=== PATIENT | female | born 1930 | race Caucasian/White ===

== ENCOUNTER 2016-07-03 22:31 | Emergency (ER) | payer MEDICARE, BC ==
[2016-07-03] MEDS ORDERED: NEOSYNEPHRINE 0.5% NASAL SPRAY/DROPS NS ONE (23:19)
--- NOTE | 2016-07-03 23:24 | ERPHSYRPT ---
- History of Present Illness Time Seen by Provider: 07/03/16 23:13 Source: patient Exam Limitations: no limitations Patient Subjective Stated Complaint: Pt sts nosebleed from left nare since 2129. Attempted to stop bleeding with pressure and ice at home without relief. Triage Nursing Assessment: Pt alert, oriented, answers all questions appropriately. Skin p/w/d, resps non-labored. Scant oozing blood noted to left nare. Nasal clamp placed on pts nose upon arrival. Physician History: This is a 85-year-old white female with history of arrhythmia hyperlipidemia high blood pressure arthritis who is on Coumadin. She arrives with complaint of bleeding from her left naris symptoms since 9:30 PM family states he applied pressure is unable to get it to stop. Patient has not had any other complaints. Past medical history includes arrhythmia, hyperlipidemia, high blood pressure, arthritis. Past surgical history includes appendectomy, hysterectomy, brain surgery from a bleed after a fall. Timing/Duration: abrupt onset, this evening (9:30 this evening) Severity: mild Prearrival Treatment: squeezing nostrils Modifying Factors: Improves With: activity Associated Symptoms: other (bleeding from left naris), No ear pain (R), No ear pain (L), No cough, No fever, No chills, No change in hearing, No dizziness, No drooling, No ear drainage, No facial pain/swelling, No headache, No hearing loss , No jaw pain, No malaise, No motion sickness, No nasal congestion/drainage, No epistaxis, No nasal foreign body, No neck pain, No poor fluid intake, No poor solids intake, No ringing of ears, No swollen glands, No sinus infection, No sore throat, No tooth pain, No difficulty swallowing, No voice change Allergies/Adverse Reactions: No Known Drug Allergies Allergy (Verified 07/03/16 22:34) Home Medications: Amlodipine Besylate [Norvasc] 5 mg PO DAILY 03/14/13 [History] Digoxin [Lanoxin] 0.5 tab PO DAILY 03/14/13 [History] Metoprolol Tartrate 50 mg [Lopressor 50 MG] 50 mg PO BID 03/14/13 [History ] Simvastatin [Zocor] 20 mg PO DAILY 03/14/13 [History] Warfarin Sodium [Coumadin] 3 mg PO DAILY 03/14/13 [History] Oxybutynin Chloride [Oxybutynin Chloride ER] 5 mg PO BID 11/22/15 [History] Hx Tetanus, Diphtheria Vaccination/Date Given: No Hx Influenza Vaccination/Date Given: Yes (11/2013) Hx Pneumococcal Vaccination/Date Given: Yes (11/2007) Immunizations Up to Date: Yes - Review of Systems Constitutional: No Fever, No Chills Eyes: No Symptoms Ears, Nose, & Throat: Epistaxis, No Ear Pain, No Ear Discharge, No Hearing Changes, No Tinnitus, No Nose Pain, No Nose Congestion, No Nose Discharge, No Sinus Drainage, No Mouth Pain, No Mouth Swelling, No Loose Teeth, No Throat Pain , No Throat Swelling, No Hoarse, No Painful Swallowing, No Snoring, No Stridor Respiratory: No Cough, No Dyspnea Cardiac: No Chest Pain, No Edema, No Syncope Abdominal/Gastrointestinal: No Abdominal Pain, No Nausea, No Vomiting, No Diarrhea Genitourinary Symptoms: No Dysuria Musculoskeletal: No Back Pain, No Neck Pain Skin: No Rash Neurological: No Dizziness, No Focal Weakness, No Sensory Changes Psychological: No Symptoms Endocrine: No Symptoms All Other Systems: Reviewed and Negative - Past Medical History Pertinent Past Medical History: Yes Neurological History: Other ENT History: No Pertinent History Cardiac History: Arrhythmia, High Cholesterol, Hypertension Respiratory History: No Pertinent History Endocrine Medical History: No Pertinent History Musculoskeletal History: Arthritis GI Medical History: No Pertinent History History: No Pertinent History Psycho-Social History: No Pertinent History Female Reproductive Disorders: No Pertinent History Other Medical History: hx:fall with brain surgery- 50 years - Past Surgical History Past Surgical History: Yes Neuro Surgical History: Other Cardiac: No Pertinent History Respiratory: No Pertinent History Gastrointestinal: Appendectomy Genitourinary: No Pertinent History Musculoskeletal: No Pertinent History Female Surgical History: Hysterectomy Other Surgical History: Brain surgery for a bleed from a fall - Social History Smoking Status: Never smoker How long have you smoked: social smo Exposure to second hand smoke: No Drug Use: none Patient Lives Alone: Yes - Nursing Vital Signs Nursing Vital Signs: Initial Vital Signs Temperature 97.6 F Temperature Source Oral Pulse Rate 66 Respiratory Rate 16 Blood Pressure [Left Arm] 133/79 Pain Intensity 0 - Physical Exam General Appearance: no apparent distress, alert Eye Exam: bilateral eye: normal inspection, PERRL, EOMI Ear Exam: bilateral ear: auricle normal, canal normal, TM normal Nasal Exam: active bleeding (bleeding left naris mild amount decreased after nurses applied a nasal clamp) Throat Exam: pharynx normal, moist mucus membranes, No tonsillar exudate Neck Exam: supple Cardiovascular/Respiratory Exam: normal breath sounds, regular rate/rhythm Abdominal Exam: non-tender, soft Neurologic Exam: alert, oriented x 3, sensation nml, No motor deficits Skin Exam: normal color SpO2 Interpretation: normal (96%) SpO2: 96 Oxygen Delivery: Room Air - Course Nursing assessment & vital signs reviewed: Yes Ordered Tests: Active Orders 24 hr Category Date Time Status CBC W DIFF Stat Lab 07/03/16 23:45 Completed PROTIME WITH INR Stat Lab 07/03/16 23:45 Completed PTT Stat Lab 07/03/16 23:45 Completed Medication Summary Discontinued Medications Generic Name Dose Route Start Last Admin Trade Name Duranq PRN Reason Stop Dose Admin Phenylephrine HCl 15 ml 07/03/16 23:19 07/03/16 23:43 Neosynephrine 0.5% Nasal [place]/Drops NS 07/03/16 23:20 15 ml STAT ONE Administration Phenylephrine HCl Confirm 07/03/16 23:43 Neosynephrine 0.5% Nasal [place]/Drops Administered 07/03/16 23:44 Dose 15 ml .ROUTE .[employer] ONE Lab/Rad Data: Laboratory Result Diagrams 07/03/16 23:45 Laboratory Results 07/03/16 07/03/16 Range/Units 23:45 23:45 WBC 6.3 (4.0-10.5) K/mm3 RBC 3.67 L (4.1-5.4) M/mm3 Hgb 12.3 (12.0-16.0) gm/dl Hct 36.6 (35-47) % MCV 99.7 (78-100) fl MCH 33.5 H (26-32) pg MCHC 33.6 (32-36) g/dl RDW 13.5 (11.5-14.0) % Plt Count 201 (150-450) K/mm3 MPV 9.4 (6-9.5) fl Gran % 54.1 (36.0-66.0) % Lymphocytes % 29.0 (24.0-44.0) % Monocytes % 12.6 H (0.0-12.0) % Eosinophils % 4.0 (0.00-5.0) % Basophils % 0.3 (0.0-0.4) % Basophils # 0.02 (0-0.4) INR 2.67 (0.8-3.0) APTT 41.2 H (25.3-37.0) SECONDS - Progress Progress: improved Progress Note: 07/04/16 00:13 85-year-old white female with complaint of bleeding from left naris. Symptoms since this evening. Patient with minimal bleeding after nose clip is placed on patient. Patient was asked to blow her nose. Patient was given Jeffry-Synephrine in the left naris. No further bleeding. Patient's blood pressure was elevated on arrival this resolved spontaneously. Patient's INR is within therapeutic level. Will discharge patient with Jeffry-Synephrine 2 sprays in left nostril 4 times a day as needed for 2-3 days. Patient to follow-up with her family doctor. - Departure Time of Disposition: 00:15 Departure Disposition: Home Clinical Impression: Epistaxis Condition: Fair Critical Care Time: No Instructions: Nosebleed Additional Instructions: Return home. Jeffry-Synephrine 0.5% 2 sprays left naris 4 times a day as needed for 2-3 days. Follow-up with your family doctor call tomorrow if symptoms are recurrent. Return for acute distress or for severe symptoms.
[2016-07-03] MEDS ORDERED: NEOSYNEPHRINE 0.5% NASAL SPRAY/DROPS ONE (23:43)
[2016-07-03 23:48] LABS: BASOPHIL % 0.3 % (0.0-0.4); Granulocytes % 54.1 % (36.0-66.0); Mean Cell Volume 99.7 fl (78-100); Mean Corpuscular Hemoglobin 33.5 pg (26-32); Mean Platelet Volume 9.4 fl (6-9.5); Monocytes % 12.6 % (0.0-12.0); Platelet Count 201 K/mm3 (150-450); Red Blood Count 3.67 M/mm3 (4.1-5.4); Red Cell Distribution Width 13.5 % (11.5-14.0); White Blood Count 6.3 K/mm3 (4.0-10.5)
[2016-07-04 00:04] LABS: INR 2.67 (0.8-3.0); PROTIME 29.1 SECONDS (9.95-12.35)
[2016-07-04 00:07] LABS: PTT 41.2 SECONDS (25.3-37.0)
[2016-07-04 00:13] VITALS: BP 138/84; PULSE 60
[2016-07-04 00:16] VITALS: O2SAT 96
== END 2016-07-04 00:27 | disposition home or self-care (01) ==
LOC: ED 22:31
DX: R04.0 Epistaxis (principal); E78.5 Hyperlipidemia, unspecified; I10 Essential (primary) hypertension; Z79.01 Long term (current) use of anticoagulants; Z79.899 Other long term (current) drug therapy
CPT/HCPCS: 36415; 85025; 85610; 85730; 99283; A9270-GY

== ENCOUNTER 2017-02-02 15:48 | Emergency (ER) | payer MEDICARE, BC ==
[2017-02-02] MEDS ORDERED: MORPHINE SULFATE 4 MG INJ IV ONE ×2 (16:21→18:23)
[2017-02-02] MEDS ORDERED: Zofran 4 MG/2 ML VIAL IV ONE (16:21)
[2017-02-02] MEDS ORDERED: MORPHINE SULFATE 4 MG INJ ONE ×2 (16:22→18:24)
--- NOTE | 2017-02-02 16:24 | ERPHSYRPT ---
- History of Present Illness Time Seen by Provider: 02/02/17 16:15 Source: patient, family Exam Limitations: no limitations Patient Subjective Stated Complaint: TRIPPED AND FELL IN ON RUG WALKING INTO [facility] Triage Nursing Assessment: PT ALERT AND ORIENTED X3 , SOME SHORTENING NOTED ON LEFT LEG , TENDERNESS AND PAIN IN LEFT GROIN AREA, LEFT KNEE PAIN AND A SCRAPE ON LEFT KNEE Physician History: 86 y/o female currently on coumadin brought in by ambulance after tripping and falling landing on her left lower extremity. Pt states that she landed on her left knee and left hip. Of note, the son states that her head slid on the floor. Pt arrives in excruciating pain especially with minimal movement. Pt describes the pain as sharp, constant, 7/10 and pt has not taken any pain meds. Pt denies any headache, neck pain, back pain, dizziness or chest pain. Timing/Duration: today Occured at: street Context: fall Quality: sharpness Hip Pain Location: hip (L) Severity of Pain-Max: moderate Severity of Pain-Current: moderate Modifying Factors: Improves With: movement Allergies/Adverse Reactions: No Known Drug Allergies Allergy (Verified 07/03/16 22:34) Home Medications: Amlodipine Besylate [Norvasc] 5 mg PO DAILY 03/14/13 [History] Digoxin [Lanoxin] 0.5 tab PO DAILY 03/14/13 [History] Metoprolol Tartrate 50 mg [Lopressor 50 MG] 50 mg PO BID 03/14/13 [History ] Simvastatin [Zocor] 20 mg PO DAILY 03/14/13 [History] Warfarin Sodium [Coumadin] 3 mg PO DAILY 03/14/13 [History] Oxybutynin Chloride [Oxybutynin Chloride ER] 5 mg PO BID 11/22/15 [History] Hx Tetanus, Diphtheria Vaccination/Date Given: Yes Hx Influenza Vaccination/Date Given: No Hx Pneumococcal Vaccination/Date Given: No Immunizations Up to Date: Yes - Review of Systems Constitutional: No Fever, No Chills Eyes: No Symptoms Ears, Nose, & Throat: No Symptoms Respiratory: No Cough, No Dyspnea Cardiac: No Chest Pain, No Edema, No Syncope Abdominal/Gastrointestinal: No Abdominal Pain, No Nausea, No Vomiting, No Diarrhea Genitourinary Symptoms: No Dysuria Musculoskeletal: Joint Pain, No Back Pain, No Neck Pain Skin: No Rash Neurological: No Dizziness, No Focal Weakness, No Sensory Changes Psychological: No Symptoms Endocrine: No Symptoms All Other Systems: Reviewed and Negative - Past Medical History Pertinent Past Medical History: Yes Neurological History: Other ENT History: No Pertinent History Cardiac History: Arrhythmia, High Cholesterol, Hypertension Respiratory History: No Pertinent History Endocrine Medical History: No Pertinent History Musculoskeletal History: Arthritis GI Medical History: No Pertinent History History: No Pertinent History Psycho-Social History: No Pertinent History Female Reproductive Disorders: No Pertinent History Other Medical History: hx:fall with brain surgery- 50 years - Past Surgical History Past Surgical History: Yes Neuro Surgical History: Other Cardiac: No Pertinent History Respiratory: No Pertinent History Gastrointestinal: Appendectomy Genitourinary: No Pertinent History Musculoskeletal: No Pertinent History Female Surgical History: Hysterectomy Other Surgical History: Brain surgery for a bleed from a fall - Social History Smoking Status: Never smoker How long have you smoked: social smo Exposure to second hand smoke: No Drug Use: none Patient Lives Alone: Yes - Female History Hx Now: No - Nursing Vital Signs Nursing Vital Signs: Initial Vital Signs Pulse Rate 62 02/02/17 15:49 Respiratory Rate 20 02/02/17 15:49 Blood Pressure 195/84 02/02/17 15:49 O2 Sat by Pulse Oximetry 98 02/02/17 15:49 Pain Scale Pain Intensity 6 - Physical Exam General Appearance: mild distress, alert Eye Exam: PERRL/EOMI Ears, Nose, Throat Exam: normal ENT inspection, moist mucous membranes Neck Exam: normal inspection, non-tender, supple Respiratory Exam: normal breath sounds, lungs clear, No chest tenderness, No respiratory distress Cardiovascular Exam: regular rate/rhythm, No edema Gastrointestinal Exam: soft, No tenderness, No distention, No guarding Back Exam: normal inspection, normal range of motion, No vertebral tenderness Extremity Exam: No pelvis stable Neurologic Exam: alert, oriented x 3, cooperative, nutrition services manager II-XII nml as tested, sensation nml, No motor deficits Skin Exam: normal color, warm, dry, No rash - Course Nursing assessment & vital signs reviewed: Yes Ordered Tests: Active Orders 24 hr Category Date Time Status EKG-ER Only STAT Care 02/02/17 16:21 Active Bland [Catheter-Byhalia Bland] STAT Care 02/02/17 17:34 Active IV Insertion STAT Care 02/02/17 16:21 Active NPO (ED) STAT Care 02/02/17 16:21 Active CHEST 1 VIEW (PORTABLE) Stat Exams 02/02/17 16:21 Completed HEAD WITHOUT CONTRAST [CT] Stat Exams 02/02/17 16:38 Completed LOWER EXTREMITY WO CONTRAST [CT] Stat Exams 02/02/17 16:38 Completed CBC W DIFF Stat Lab 02/02/17 16:15 Completed CK-Creatinine Phosphokinase Stat Lab 02/02/17 16:15 Completed CMP Stat Lab 02/02/17 16:15 Completed CULTURE,URINE Stat Lab 02/02/17 17:46 Received PROTIME WITH INR Stat Lab 02/02/17 16:15 Completed PTT Stat Lab 02/02/17 16:15 Completed TROPONIN Q3H Lab 02/02/17 16:25 Completed TROPONIN Q3H Lab 02/02/17 19:30 Ordered TROPONIN Q3H Lab 02/02/17 22:30 Ordered TROPONIN Q3H Lab 02/03/17 01:30 Ordered TROPONIN Q3H Lab 02/03/17 04:30 Ordered UA W/ MICROSCOPIC Stat Lab 02/02/17 17:46 Completed Medication Summary Discontinued Medications Generic Name Dose Route Start Last Admin Trade Name Freq PRN Reason Stop Dose Admin Morphine Sulfate 4 mg 02/02/17 16:21 02/02/17 16:28 Morphine Sulfate 4 Mg Inj IV 02/02/17 16:22 4 mg STAT ONE Administration Morphine Sulfate Confirm 02/02/17 16:22 Morphine Sulfate 4 Mg Inj Administered 02/02/17 16:23 Dose 4 mg .ROUTE .STK-MED ONE Morphine Sulfate 4 mg 02/02/17 18:23 02/02/17 18:26 Morphine Sulfate 4 Mg Inj IV 02/02/17 18:24 4 mg STAT ONE Administration Morphine Sulfate Confirm 02/02/17 18:24 Morphine Sulfate 4 Mg Inj Administered 02/02/17 18:25 Dose 4 mg .ROUTE .STK-MED ONE Ondansetron HCl 4 mg 02/02/17 16:21 02/02/17 16:29 Zofran 4 Mg/2 Ml Vial IV 02/02/17 16:22 4 mg STAT ONE Administration Ondansetron HCl Confirm 02/02/17 16:30 Zofran 4 Mg/2 Ml Vial Administered 12/22/17 16:31 Dose 4 mg .ROUTE .STK-MED ONE Lab/Rad Data: Laboratory Result Diagrams 02/02/17 16:15 02/02/17 16:15 Laboratory Results 02/02/17 02/02/17 02/02/17 Range/Units 17:46 16:25 16:15 WBC (4.0-10.5) K/mm3 RBC (4.1-5.4) M/mm3 Hgb (12.0-16.0) gm/dl Hct (35-47) % MCV (78-100) fl MCH (26-32) pg MCHC (32-36) g/dl RDW (11.5-14.0) % Plt Count (150-450) K/mm3 MPV (6-9.5) fl Gran % (36.0-66.0) % Lymphocytes % (24.0-44.0) % Monocytes % (0.0-12.0) % Eosinophils % (0.00-5.0) % Basophils % (0.0-0.4) % Basophils # (0-0.4) INR 1.21 (0.8-3.0) APTT 32.0 (25.3-37.0) SECONDS Sodium (136-145) mEq/L Potassium (3.5-5.1) mEq/L Chloride (98-107) mEq/L Carbon Dioxide (21-32) mEq/L Anion Gap (5-15) MEQ/L BUN (9-20) mg/dL Creatinine (0.55-1.30) mg/dl Estimated GFR ML/MIN Glucose (70-110) MG/DL Calcium (8.5-10.1) mg/dL Total Bilirubin (0.2-1.0) mg/dL AST (15-37) U/L ALT (12-78) U/L Alkaline Phosphatase (46-116) U/L Creatine Kinase (26-192) U/L Troponin I < 0.017 (0.000-0.056) ng/ml Serum Total Protein (6.4-8.2) gm/dL Albumin (3.4-5.0) g/dL Ur Collection Type CATH Urine Color LT.YELLOW (YELLOW) Urine Appearance CLEAR (CLEAR) Urine pH 8.0 (5-6) Ur Specific Jerome 1.010 (1.005-1.025) Urine Protein NEGATIVE (Negative) Urine Ketones NEGATIVE (NEGATIVE) Urine Blood TRACE NON-HEM (0-5) Mickey/ul Urine Nitrite POSITIVE (NEGATIVE) Urine Bilirubin NEGATIVE (NEGATIVE) Urine Urobilinogen NORMAL (0-1) mg/dL Ur Leukocyte Esterase TRACE (NEGATIVE) Urine Microscopic RBC 0-2 (0-2) /HPF Urine Microscopic WBC 5-10 (0-5) /HPF Ur Epithelial Cells MODERATE (FEW) /HPF Urine Bacteria MANY (NEGATIVE) /HPF Urine Culture Reflexed YES (NO) Urine Glucose NEGATIVE (NEGATIVE) mg/dL Specimen Received 02/02/17 [id number] 02/02/17 02/02/17 Range/Units 16:15 16:15 WBC 9.6 (4.0-10.5) K/mm3 RBC 4.19 (4.1-5.4) M/mm3 Hgb 13.4 (12.0-16.0) gm/dl Hct 40.4 (35-47) % MCV 96.4 (78-100) fl MCH 32.0 (26-32) pg MCHC 33.2 (32-36) g/dl RDW 14.0 (11.5-14.0) % Plt Count 224 (150-450) K/mm3 MPV 10.6 H (6-9.5) fl Gran % 70.4 H (36.0-66.0) % Lymphocytes % 19.1 L (24.0-44.0) % Monocytes % 9.2 (0.0-12.0) % Eosinophils % 1.1 (0.00-5.0) % Basophils % 0.2 (0.0-0.4) % Basophils # 0.02 (0-0.4) INR (0.8-3.0) APTT (25.3-37.0) SECONDS Sodium 137 (136-145) mEq/L Potassium 3.9 (3.5-5.1) mEq/L Chloride 107 (98-107) mEq/L Carbon Dioxide 19.0 L (21-32) mEq/L Anion Gap 15.2 H (5-15) MEQ/L BUN 21 H (9-20) mg/dL Creatinine 0.90 (0.55-1.30) mg/dl Estimated GFR > 60 ML/MIN Glucose 109 (70-110) MG/DL Calcium 9.1 (8.5-10.1) mg/dL Total Bilirubin 0.70 (0.2-1.0) mg/dL AST 20 (15-37) U/L ALT 23 (12-78) U/L Alkaline Phosphatase 48 (46-116) U/L Creatine Kinase 84 (26-192) U/L Troponin I (0.000-0.056) ng/ml Serum Total Protein 8.2 (6.4-8.2) gm/dL Albumin 4.1 (3.4-5.0) g/dL Ur Collection Type Urine Color (YELLOW) Urine Appearance (CLEAR) Urine pH (5-6) Ur Specific Jerome (1.005-1.025) Urine Protein (Negative) Urine Ketones (NEGATIVE) Urine Blood (0-5) Mickey/ul Urine Nitrite (NEGATIVE) Urine Bilirubin (NEGATIVE) Urine Urobilinogen (0-1) mg/dL Ur Leukocyte Esterase (NEGATIVE) Urine Microscopic RBC (0-2) /HPF Urine Microscopic WBC (0-5) /HPF Ur Epithelial Cells (FEW) /HPF Urine Bacteria (NEGATIVE) /HPF Urine Culture Reflexed (NO) Urine Glucose (NEGATIVE) mg/dL Specimen Received - Progress Progress: improved Progress Note: 02/02/17 18:[address] LE shows a subcapital fracture, CXR shows a left rib fracture and the CT head is within normal limits. The rest of the labs are unremarkable. Pt has been accepted by ER doctor, Dr Maldonado at [facility]. - Departure Time of Disposition: 18:33 Departure Disposition: Transfer Clinical Impression: Hip fracture Qualifiers: Encounter type: initial encounter Fracture type: closed Laterality: left Qualified Code(s): S72.002A - Fracture of unspecified part of neck of left femur , initial encounter for closed fracture Condition: Fair Critical Care Time: Yes Critical Care Time(excluding separately billable procedures): 75-104 minutes Referrals: OSWALD ZAVALA [Primary Care Provider] -
[2017-02-02 16:27] VITALS: PULSE 62
[2017-02-02] MEDS ORDERED: Zofran 4 MG/2 ML VIAL ONE (16:30)
[2017-02-02 16:48] LABS: BASOPHIL % 0.2 % (0.0-0.4); Eosinophil % 1.1 % (0.00-5.0); Granulocytes % 70.4 % (36.0-66.0); Lymphocytes % 19.1 % (24.0-44.0); Mean Cell Volume 96.4 fl (78-100); Mean Platelet Volume 10.6 fl (6-9.5); Monocytes % 9.2 % (0.0-12.0); Platelet Count 224 K/mm3 (150-450); Red Blood Count 4.19 M/mm3 (4.1-5.4); White Blood Count 9.6 K/mm3 (4.0-10.5)
[2017-02-02 16:54] LABS: INR 1.21 (0.8-3.0); PROTIME 13.5 SECONDS (9.95-12.35)
[2017-02-02 17:01] LABS: ALBUMIN 4.1 g/dL (3.4-5.0); ALKALINE PHOSPHATASE 48 U/L (46-116); ANION GAP 15.2 MEQ/L (5-15); BLOOD UREA NITROGEN 21 mg/dL (9-20); CHLORIDE 107 mEq/L (98-107); Glucose 109 MG/DL (70-110); Potassium 3.9 mEq/L (3.5-5.1); SGOT/AST 20 U/L (15-37); SGPT/ALT 23 U/L (12-78); SODIUM 137 mEq/L (136-145); Total Protein 8.2 gm/dL (6.4-8.2)
[2017-02-02 17:16] VITALS: BP 175/85; O2SAT 99
--- NOTE | 2017-02-02 17:34 | XRAY ---
Indication: Fall 2 weeks ago. Multiple contiguous axial images obtained through the head without contrast. Comparison: July 20, 2009. Minimal motion artifact. Again there is age-appropriate global atrophy and mild periventricular degenerative microvascular ischemia bilaterally. No acute intracranial hemorrhage, abnormal extra-axial fluid collection, or mass effect. Fourth ventricle is midline without hydrocephalus. Bony calvarium intact again with high left parietal craniotomy. Visualized paranasal sinuses and mastoid air cells are clear. Impression: Again nonacute senile brain with left parietal craniotomy. CTDI 50.00
--- NOTE | 2017-02-02 17:36 | XRAY ---
Indication: Fall 2 weeks ago. Comparison: May 15, 2008. Portable chest again hyperinflated with incidental calcified granulomas. No focal infiltrate, consolidation, large effusion, or pneumothorax. Heart is not enlarged for AP portable technique. Bony thorax demonstrate mild osteopenia and mild degenerative changes with new minimally displaced left lateral 7th rib fracture. Impression: New left 7th rib fracture without hemothorax/pneumothorax. Again COPD and evidence for old granulomatous disease.
--- NOTE | 2017-02-02 17:44 | XRAY ---
Indication: Pain following fall 2 weeks ago. Multiple contiguous axial images obtained through the left hip to the level of the supra condyle. Sagittal and coronal reformatted images obtained. Comparison: None Distal images degraded by motion artifact. There is age-related osteopenia and mild degenerative joint space narrowing. There is also a complete subcapital fracture with moderate anterior angulation. Femur is slightly impacted superiorly. No bony union or callus formation. No other acute fracture or suspicious bony lesions. Mild scattered vascular calcifications. Remaining visualized noncontrasted soft tissues including pelvic contents unremarkable. Impression: 1. Motion artifact. 2. Subcapital fracture as detailed. 3. Osteopenia and left hip degenerative changes. CTDI 18.10
[2017-02-02 18:01] LABS: Collection Type CATH
[2017-02-02 18:02] LABS: ADD URINE CULTURE? YES (NO); Bacteria MANY /HPF (NEGATIVE); Bilirubin NEGATIVE (NEGATIVE); Blood TRACE NON-HEM Ery/ul (0-5); COMPLETE URINE MICROSCOPIC? YES; Epithelial Cells MODERATE /HPF (FEW); Glucose NEGATIVE (NEGATIVE); Leukocyte Esterase TRACE (NEGATIVE)
== END 2017-02-02 19:06 | disposition short-term general hospital (02) ==
LOC: ED 15:48
DX: S72.002A Fracture of unspecified part of neck of left femur, initial encounter for closed fracture (principal); W01.0XXA Fall on same level from slipping, tripping and stumbling without subsequent striking against object, initial encounter; Y92.511 Restaurant or cafe as the place of occurrence of the external cause; Z79.01 Long term (current) use of anticoagulants; S80.212A Abrasion, left knee, initial encounter; M25.552 Pain in left hip
CPT/HCPCS: 36000; 36415; 51702; 70450; 71010; 73700; 80053; 81000; 82550; 84484; 85025; 85610; 85730; 87077; 87086; 87186; 93005; 96374; 96375; 96376; 99285; J2270; J2405

== ENCOUNTER 2017-07-13 10:21 | Inpatient (IN) | payer MEDICARE, BC ==
--- NOTE | 2017-07-13 10:40 | ERPHSYRPT ---
- History of Present Illness Time Seen by Provider: 07/13/17 10:35 Source: patient Exam Limitations: no limitations Physician History: The patient is an 86-year-old demented female from a local alf brought in by ambulance where she was ambulating in her room by herself when she fell. The patient doesn't recall any thing of the incident. She has a cut to her right eyebrow and his skin tear to her right elbow. She denies any pain. Her past medical history is significant for dementia, A. fib, hypertension, and high cholesterol. Occurred: just prior to arrival Reason for Fall: lost balance, fell from standing pos Injuries/Pain Location: face, upper extremity (right elbow) Loss of Consciousness: unsure Severity of Pain-Max: none Severity of Pain-Current: none Modifying Factors: Improves With: nothing Associated Symptoms (Fall): denies symptoms Allergies/Adverse Reactions: No Known Drug Allergies Allergy (Verified 07/13/17 10:30) Home Medications: Amlodipine Besylate [Norvasc] 5 mg PO DAILY 03/14/13 [History] Digoxin [Lanoxin] 0.5 tab PO DAILY 03/14/13 [History] Metoprolol Tartrate 50 mg [Lopressor 50 MG] 50 mg PO BID 03/14/13 [History ] Simvastatin [Zocor] 20 mg PO DAILY 03/14/13 [History] Warfarin Sodium [Coumadin] 3 mg PO DAILY 03/14/13 [History] Oxybutynin Chloride [Oxybutynin Chloride ER] 5 mg PO BID 11/22/15 [History] Hx Tetanus, Diphtheria Vaccination/Date Given: Yes Hx Influenza Vaccination/Date Given: No Hx Pneumococcal Vaccination/Date Given: No - Review of Systems Constitutional: No Fever, No Chills Eyes: No Symptoms Ears, Nose, & Throat: No Symptoms Respiratory: No Cough, No Dyspnea Cardiac: No Chest Pain, No Edema, No Syncope Abdominal/Gastrointestinal: No Abdominal Pain, No Nausea, No Vomiting, No Diarrhea Genitourinary Symptoms: No Dysuria Musculoskeletal: Fall, Injury Skin: Other (laceration and skin tear) Neurological: No Dizziness, No Focal Weakness, No Sensory Changes Psychological: No Symptoms Endocrine: No Symptoms Hematologic/Lymphatic: No Symptoms Immunological/Allergic: No Symptoms All Other Systems: Reviewed and Negative - Past Medical History Pertinent Past Medical History: Yes Neurological History: Other ENT History: No Pertinent History Cardiac History: Arrhythmia, High Cholesterol, Hypertension Respiratory History: No Pertinent History Endocrine Medical History: No Pertinent History Musculoskeletal History: Arthritis GI Medical History: No Pertinent History History: No Pertinent History Psycho-Social History: No Pertinent History Female Reproductive Disorders: No Pertinent History Other Medical History: hx:fall with brain surgery- 49 years - Past Surgical History Past Surgical History: Yes Neuro Surgical History: Other Cardiac: No Pertinent History Respiratory: No Pertinent History Gastrointestinal: Appendectomy Genitourinary: No Pertinent History Musculoskeletal: No Pertinent History Female Surgical History: Hysterectomy Other Surgical History: Brain surgery for a bleed from a fall - Social History Smoking Status: Never smoker How long have you smoked: social smo Exposure to second hand smoke: No Drug Use: none Patient Lives Alone: Yes - Nursing Vital Signs Nursing Vital Signs: Initial Vital Signs Temperature 98.2 F 07/13/17 10:26 Pulse Rate 86 07/13/17 10:26 Respiratory Rate 14 07/13/17 10:26 Blood Pressure 215/109 07/13/17 10:26 O2 Sat by Pulse Oximetry 97 07/13/17 10:26 Pain Scale Pain Intensity 0 - [place] Coma Score Best Eye Response (Dominguez): (4) open spontaneously Best Verbal Response ([place]): (5) oriented Best Motor Response ([place]): (6) obeys commands [place] Total: 15 - Physical Exam General Appearance: no apparent distress, alert Head Injury: lacerations (right eye brow) Eye Exam: PERRL/EOMI ENT Exam: airway nml Neck Exam: normal inspection, No tenderness Respiratory/Chest Exam: normal breath sounds, No chest tenderness, No respiratory distress Cardiovascular Exam: murmur, irregular Gastrointestinal Exam: soft, No tenderness, No distention, No guarding, No ecchymosis Rectal Exam: not done Back Exam: normal inspection, No vertebral tenderness Extremity Exam: limited range of motion (right hip), hip tenderness (right hip) , pain with movement (right hip) Neurologic Exam: alert, cooperative, other (dementia) Skin Exam: laceration (right eye brow, skin tear to right elbow) SpO2 Interpretation: normal SpO2: 97 Oxygen Delivery: Room Air Procedures - Laceration/Wound Repair Right Face Wound Location: Right, face Wound Length (cm): 1.5 Wound's Depth, Shape: linear Wound Explored: clean Irrigated: Yes Hibiclens Prep: Yes Wound Repaired With: Dermabond Sterile Dressing Applied?: Yes - Radiology Exams Right Elbow X-ray Interpretation: Teleradiologist Report, Negative, No Fracture (per Dr Lofton.) Right Hip X-ray Interpretation: Teleradiologist Report, No Fracture (per Dr Lofton) Pelvis X-ray Interpretation: Teleradiologist Report, Non-displaced Fracture ( asymmetric deformity of superior medial aspect of right pubis per Dr Lofton) - CT Exams Cervical Spine CT Interpretation: Tele-radiologist Report, No Fracture (per Dr Lofton) Head CT Interpretation: Tele-radiologist Report, No Fracture, No/Intracranial Hemorrhag (subtle curvilinear high attenuation density near corticl sulcus that is most likely artifactual per Dr Lofton) Ordered Tests: Active Orders 24 hr Category Date Time Status CERVICAL SPINE WO CONTRAST [CT] Stat Exams 07/13/17 10:44 Completed ELBOW (MINIMUM 3 VIEWS) Stat Exams 07/13/17 10:42 Completed HEAD WITHOUT CONTRAST [CT] Stat Exams 07/13/17 10:44 Completed HIP UNI (2V) INCL PEL IF DONE Stat Exams 07/13/17 10:42 Completed - Progress Progress: improved Discussed with : Monica Will see patient in: hospital (observation) Counseled pt/family regarding: lab results, diagnosis, rad results - Departure Time of Disposition: 13:23 Departure Disposition: Observation (per Dr Whitman) Clinical Impression: Pelvis fracture, Laceration, Skin tear Condition: Stable Critical Care Time: No Referrals: SARAH PRO [Primary Care Provider] -
--- NOTE | 2017-07-13 12:20 | XRAY ---
Exam: CT of the head without IV contrast from 07/13/2017. CTDI: 61.76 Comparison: CT of the head without IV contrast from 02/02/2017. Indication: Fall striking head, history of dementia. Technique: Non-IV contrast axial images were obtained through the brain. Reconstructed coronal and sagittal images were created and reviewed. Findings: The study is motion limited. The ventricles reveal slight prominence of the third ventricle representing no change. No focal mass effect or midline shift is seen. On axial image #28, there is some subtle curvilinear increased density within the high anterior left frontal region. Judging from the motion artifact, I believe this is probably artifactual. Subtle hemorrhage is not excluded with certainty. There is no other evidence of intracranial bleed or subdural or epidural hematoma. Mild bilateral periventricular and subcortical white matter changes are seen believed to be due to chronic microvascular disease. A discrete low-attenuation territorial infarct is not seen. There is mild prominence of the cortical sulci and basilar cisterns consistent with the patient's advanced age/cerebral volume loss. I again see evidence of a high posterior left parietal craniotomy with some surgical clips. No fracture of the calvarium of the skull is seen. There appears to be a 1.2 cm in diameter polyp or retention cyst at the visualized inferior medial aspect of the left maxillary sinus. No paranasal sinus air-fluid levels are seen. The mastoid air cells are clear. Impression: 1. The study is mildly motion limited. Within the high anterior left frontal region on axial image #28 there is a subtle curvilinear high attenuation density adjacent to a cortical sulcus. I believe this most likely is artifactual. The possibility of a subtle hemorrhage at this level cannot be completely excluded, although again I believe this is unlikely. 2. Mild generalized cerebral volume loss and chronic microvascular disease within the periventricular and subcortical white matter are again seen. 3. No other acute intracranial process is seen. No skull fracture is seen. 4. Status post high left posterior parietal craniotomy, no change. 5. 1.2 cm in diameter soft tissue polyp or retention cyst is partially seen at the medial margin of the visualized left maxillary sinus. This is an incidental finding.
--- NOTE | 2017-07-13 12:24 | XRAY ---
Exam: CT of the cervical spine without IV contrast from 07/13/2017. CTDI: 29.47 Comparison: None. Indication: Fall striking head, patient unable to communicate effectively, history of dementia. Technique: Non-IV contrast axial images were obtained through the cervical spine. Reconstructed coronal and sagittal images were created and reviewed. Findings: The cervical spine reveals no acute fracture, AP traumatic subluxation, or prevertebral soft tissue swelling. Incidentally, there is minimal soft tissue air density just above and posterior to the medial aspect of both clavicles. Does the patient have an IV?. The visualized lung apices reveal a calcified granuloma at the right lung apex. No other acute disease within the lung apices or pneumothorax is seen. There is very slight anterolisthesis of C3 over C4 which I believe is most likely due to arthritis. Similar minimal anterolisthesis is seen at C7 over T1 and T1 over T2. This is probably due to facet joint arthropathy. Moderate degenerative disc disease at C3-C4 and marked degenerative disc disease from C4-C5 through C6-C7 are seen. There is also significant degenerative joint disease within the apophyseal/facet joints and the uncovertebral joints. No cervical ribs are seen. I appreciate no significant central canal stenosis. There appears to be varying degrees of neural foraminal narrowing from C3-C4 through C6-C7, largely due to uncovertebral joint and prominent apophyseal joint spurring. Dense atherosclerotic vascular calcification is seen within both carotid artery bifurcations. No abnormal cervical lymphadenopathy is seen. The thyroid gland is remarkable for a 4.8 mm low-attenuation nodule at the lateral margin of the inferior pole of the left lobe. This might represent a small cyst or adenoma. Impression: 1. No acute cervical spine fracture, AP traumatic subluxation, or prevertebral soft tissue swelling is seen. 2. Mild to moderate degenerative disc disease at C3-C4 and marked degenerative disc disease at C4-C5, C5-C6, and C6-C7 are seen. There is also advanced degenerative joint disease seen within the facet/apophyseal joints bilaterally as well as the uncovertebral joints. These arthritic changes most likely account for slight anterolisthesis of C3 over C4 as well as C7 over T1 and T1 over T2. 3. Very small low-attenuation nodule within inferior pole of the thyroid gland.
--- NOTE | 2017-07-13 12:31 | XRAY ---
Exam: Right hip films including AP pelvis from 07/13/2017 Comparison: Left hip films from 02/20/2017 and hip films from 06/22/2015. Indication: Fall, complains of right hip pain. Findings: AP film of the pelvis was obtained in addition to coned down AP and frog-leg lateral views of the right hip. I see no acute fracture or dislocation involving the right hip. Mild to moderate osteoarthritic changes affect the right hip joint space. A left hip joint replacement is seen. The pelvis reveals some new deformity at the superior medial aspect of the right pubis which I believe likely represents a minimally comminuted acute fracture at this site. This is different than that seen on prior images from 06/22/2015. The remainder of the pelvis appears intact. Mild mid lumbar rotary levoscoliosis and diffuse degenerative changes within the lower lumbar spine are seen. The urinary bladder appears distended. Impression: 1. I see no acute fracture or dislocation of the right hip. 2. 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 This is relatively similar to 06/22/2015. 3. On the pelvis radiograph, there is mild asymmetric deformity involving the superior medial aspect of the right pubis. This is new from 06/22/2015. I believe this is consistent with a mildly comminuted, acute fracture injury. 4. Status post left hip arthroplasty.
--- NOTE | 2017-07-13 12:37 | XRAY ---
Exam: Limited two-view study of the right elbow from 07/13/2017. Comparison: 3 views of the right elbow from 06/23/2010. Indication: Fall, right elbow contusion. Findings: An AP image of the right elbow and a mildly oblique lateral image of the right elbow were obtained. I see no definite acute fracture of the right elbow. There appears be minimal lateral subluxation of the right radial head with respect to the distal right humerus on the AP image, but this is unchanged from 06/23/2010 (chronic). Minimal hypertrophic degenerative changes are seen at the medial margin of the right elbow joint representing no change. The right elbow joint space is mildly narrowed at its lateral aspect representing no change. I cannot definitely assess the anterior fat pad or posterior fat pad for possible joint effusion because the lateral image is obliqued. No other focal bone lesion is seen. Impression: 1. Limited two-view study of the right elbow reveals no definite fracture or dislocation. 2. Mild chronic changes of the right elbow are seen, as discussed above. These are unchanged from 06/23/2010.
[2017-07-13] MEDS ORDERED: MORPHINE SULFATE 2 MG INJ IV ONE (13:02)
[2017-07-13] MEDS ORDERED: Zofran 4 MG/2 ML VIAL IV ONE (13:04)
[2017-07-13] MEDS ORDERED: MORPHINE SULFATE 4 MG INJ ONE (13:04)
[2017-07-13] MEDS ORDERED: Zofran 4 MG/2 ML VIAL ONE (13:05)
[2017-07-13] MEDS ORDERED: Zofran 4 MG/2 ML VIAL IV PRN (14:21)
[2017-07-13] MEDS ORDERED: TYLENOL 325 MG PO PRN (14:21)
[2017-07-13] MEDS: MORPHINE SULFATE 4 MG INJ IV PRN (16:58)
--- NOTE | 2017-07-13 17:42 | PCM.HP ---
History of Present Illness - Chief Complaint Chief Complaint: pelvic fracture History of Present Illness: is a 86 year old female pt with dementia who came in from [facility] after a fall. She was unable to give any history. She was found to have possible pelvic fx and possible (though unlikely) cerebral hemorrhage on CT and was admitted for pain control. She was given morphine within the last hour and is currently resting comfortably. - Review of Systems All Other Systems: Unable due to dementia Medications & Allergies Home Medications: Home Medication List Digoxin [Lanoxin] 0.5 tab PO DAILY 03/14/13 [History Confirmed 07/13/17] Warfarin Sodium [Coumadin] 3 mg PO DAILY 03/14/13 [History Confirmed 07/13/17] Acetaminophen [Acetaminophen 8 Hour] 650 mg PO Q4H PRN 07/13/17 [History Confirmed 07/13/17] Brimonidine Tartrate/Timolol [Combigan 0.2%-0.5% Eye Drops] 1 drop OP BID [History Confirmed 07/13/17] Brinzolamide [Azopt] 1 drop OP BID 07/13/17 [History Confirmed 07/13/17] Latanoprost [Xalatan] 1 drop OP HS 07/13/17 [History Confirmed 07/13/17] Metoprolol Succinate 25 mg PO DAILY 07/13/17 [History Confirmed 07/13/17] Potassium Chloride [K-Tab ER] 10 meq PO TID 07/13/17 [History Confirmed 07/13/17 ] acetaZOLAMIDE [Acetazolamide 250 mg Tablet] 250 mg PO BID 07/13/17 [History Confirmed 07/13/17] Allergies/Adverse Reactions: Allergies Allergy/AdvReac Type Severity Reaction Status Date / Time No Known Drug Allergies Allergy Verified 07/13/17 10:30 - Past Medical History Past Medical History: Yes Neurological History: Other ENT History: No Pertinent History Cardiac History: Arrhythmia, High Cholesterol, Hypertension Respiratory History: No Pertinent History Endocrine Medical History: No Pertinent History Musculoskelatal History: Arthritis GI Medical History: No Pertinent History History: No Pertinent History Pyscho-Social History: No Pertinent History Reproductive Disorders: No Pertinent History Comment: hx:fall with brain surgery- 50 years - Female History Hx Last Menstrual Period: post Are you now?: No - Past Surgical History Past Surgical History: Yes Neuro Surgical History: Other Cardiac History: No Pertinent History Respiratory Surgery: No Pertinent History GI Surgical History: Appendectomy Genitourinary Surgical Hx: No Pertinent History Musculskeletal Surgical Hx: No Pertinent History Female Surgical History: Hysterectomy Other Surgical History: Brain surgery for a bleed from a fall - Social History Smoking Status: Never smoker How long have you smoked: social smo Exposure to second hand smoke: No Alcohol: None Drug Use: none - Physical Exam Vital Signs: Vital Signs - 24 hr Temp Pulse Resp BP Pulse Ox 07/13/17 14:35 97.8 F 81 20 140/72 93 L 07/13/17 14:09 97.8 F 81 20 140/72 93 L 07/13/17 13:41 97 07/13/17 12:45 87 16 200/93 96 07/13/17 11:35 85 18 208/111 97 07/13/17 10:26 98.2 F 86 14 215/109 97 General Appearance: no apparent distress, other (sleeping) Ears, Nose, Throat Exam: other (bruising and dried red blood lateral R eye/ eyebrow. Eyelids appear intact bilat.) Neck Exam: normal inspection Respiratory Exam: normal breath sounds, lungs clear, No crackles/rales, No rhonchi, No wheezing Cardiovascular Exam: normal heart sounds, irregular, No murmur Gastrointestinal/Abdomen Exam: soft, normal bowel sounds, No distention, No mass Extremity Exam: No pedal edema, No swelling Skin Exam: warm, dry, No rash Assessment/Plan (1) Pelvis fracture Current Visit: Yes Status: Acute Qualifiers: Encounter type: initial encounter Pelvic bone location: pubis Sublocation of pubis: unspecified portion of pubis Fracture type: closed Laterality: right Qualified Code(s): S32.501A - Unspecified fracture of right pubis, initial encounter for closed fracture Assessment & Plan: Here for pain control. Unless there are complications would plan to treat conservatively. Code(s): S32.9XXA - FRACTURE OF UNSP PARTS OF LUMBOSACRAL SPINE AND PELVIS, INIT (2) Fall Current Visit: Yes Status: Acute Qualifiers: Encounter type: initial encounter Qualified Code(s): W19.XXXA - Unspecified fall, initial encounter Assessment & Plan: Will check labs and UA, may provide etiology for fall (arrhythmia, UTI, dehydration, anemia). Pt placed on telemetry. Code(s): W19.XXXA - UNSPECIFIED FALL, INITIAL ENCOUNTER (3) Arrhythmia Current Visit: Yes Status: Acute Assessment & Plan: will place on telemetry. Check digitalis level. Code(s): I49.9 - CARDIAC ARRHYTHMIA, UNSPECIFIED (4) Dementia Current Visit: Yes Status: Chronic Code(s): F03.90 - UNSPECIFIED DEMENTIA WITHOUT BEHAVIORAL DISTURBANCE (5) Anticoagulated on Coumadin Current Visit: Yes Status: Chronic Assessment & Plan: check INR Code(s): Z51.81 - ENCOUNTER FOR THERAPEUTIC DRUG LEVEL MONITORING; Z79.01 - SYSTEMS TECHNICIAN (CURRENT) USE OF ANTICOAGULANTS (6) Skin tear Current Visit: Yes Status: Acute Code(s): [id number] -
[2017-07-13 17:58] LABS: BASOPHIL % 0.1 % (0.0-0.4); Basophil (Absolute #) 0.01 (0-0.4); Eosinophil % 0.2 % (0.00-5.0); Eosinophil (Absolute #) 0.03 (0-0.5); Granulocyte Absolute (ANC) 12.03 (1.4-6.9); Granulocytes % 84.5 % (36.0-66.0); Lymphocyte (Absolute #) 1.11 (1.0-4.6); Lymphocytes % 7.8 % (24.0-44.0); Mean Cell Volume 90.5 fl (78-100); Mean Corpuscular Hemoglobin 29.3 pg (26-32); Mean Corpuscular Hgb Concent. 32.4 g/dl (32-36); Mean Platelet Volume 9.5 fl (6-9.5); Monocyte (Absolute #) 1.06 (0.0-1.3); Monocytes % 7.4 % (0.0-12.0); Platelet Count 262 K/mm3 (150-450); Red Blood Count 4.09 M/mm3 (4.1-5.4); Red Cell Distribution Width 17.7 % (11.5-14.0); White Blood Count 14.2 K/mm3 (4.0-10.5)
[2017-07-13 18:19] LABS: Appearance CLEAR (CLEAR); Bilirubin NEGATIVE (NEGATIVE); Blood TRACE NON-HEM Ery/ul (0-5); Glucose NEGATIVE (NEGATIVE); Ketones NEGATIVE (NEGATIVE); Leukocyte Esterase NEGATIVE (NEGATIVE); Nitrite NEGATIVE (NEGATIVE); Protein,Urine Dip NEGATIVE (Negative); Specific Gravity 1.005 (1.005-1.025); Urobilinogen NORMAL mg/dL (0-1)
[2017-07-13 18:20] LABS: RBC 0-2 /HPF (0-2)
[2017-07-13 18:26] LABS: INR 2.11 (0.8-3.0)
[2017-07-13 18:29] LABS: ALBUMIN 4.1 g/dL (3.5-5.0); ALKALINE PHOSPHATASE 67 U/L (38-126); ANION GAP 14.5 MEQ/L (5-15); BLOOD UREA NITROGEN 16 mg/dL (7-17); CHLORIDE 111 mmol/L (98-107); Calcium 8.8 mg/dL (8.4-10.2); Carbon Dioxide 18 mmol/L (22-30); Glucose 126 mg/dL (74-106); Potassium 3.9 mmol/L (3.5-5.1); SGOT/AST 27 U/L (14-36); SGPT/ALT 24 U/L (0-35); SODIUM 140 mmol/L (137-145); Total Protein 8.1 g/dL (6.3-8.2)
[2017-07-13 18:37] LABS: PREALBUMIN 24.29 mg/dL (17.6-36.0)
[2017-07-13] MEDS: Coumadin 3 MG PO ONE ×2 (19:43→19:50)
[2017-07-13] MEDS: Klor Con 10 MEQ PO SCH (22:06)
[2017-07-13] MEDS: Xalatan OP SCH (22:06)
[2017-07-14] MEDS: MORPHINE SULFATE 4 MG INJ IV PRN ×5 (02:00→21:40)
[2017-07-14] MEDS ORDERED: MEDICATION INTERVENTION MC SCH ×2 (08:00)
[2017-07-14] MEDS: Toprol-Xl 25MG Tablets PO SCH (09:54)
[2017-07-14] MEDS: ACETAZOLAMIDE 250 MG TABLET PO SCH ×2 (09:55→21:43)
[2017-07-14] MEDS: Klor Con 10 MEQ PO SCH ×3 (09:55→21:43)
[2017-07-14] MEDS: Lanoxin 0.125MG TABLET PO SCH (09:55)
[2017-07-14] MEDS ORDERED: Klor Con 10 MEQ PO SCH (10:00)
[2017-07-14] MEDS ORDERED: NON-FORMULARY ITEM (Brimonidine Tartrate/Timolol [Combigan 0.2%-0.5% Eye Drops] 1 DROP) OP SCH (10:00)
[2017-07-14] MEDS ORDERED: BRINZOLAMIDE OP SCH (10:00)
[2017-07-14] MEDS ORDERED: ACETAZOLAMIDE 250 MG PO SCH (10:00)
[2017-07-14] MEDS: Sodium Chloride 0.9% 1000 ML 1,000 ML IV SCH ×2 (10:33→20:37)
--- NOTE | 2017-07-14 11:00 | XRAY ---
Indication: Unresponsive and lethargic following fall one day earlier. Right eye swelling and bruising. Multiple contiguous axial images obtained through the head without contrast. Comparison: July 13, 2017. Again age-appropriate global atrophy, mild perivascular degenerative micro-ischemia bilaterally, and left parietal craniotomy. New tiny left occipital subdural hematoma measuring 3-4 mm in thickness and slightly extending along the left paramedian falx. No mass effect or midline shifting. Fourth ventricle is midline without hydrocephalus. Remaining bony calvarium intact. Stable small partially visualized left maxillary sinus polyp/retention cyst. Mastoid air cells are clear. Impression: 1. New tiny left occipital subdural hematoma without significant mass effect/midline shifting. 2. Stable atrophy, degenerative micro-ischemia, and left parietal craniotomy. CTDI 49.27
--- NOTE | 2017-07-14 11:34 | PCM.NOTE ---
Date and Time: 07/14/17 1126 Subjective Assessment: Pt has not been wanting to take her pills. She has indicated she's in pain but otherwise not able to form words. I spoke with her son and daughter in law and pt was up walking, talking, pleasantly disoriented prior to this. They thought the difficulty speaking was from the morphine. She wakes for me, says "yes" that she's in pain, otherwise unable to form words. Her repeat head CT this morning with new 3-4mm occipital subdural hematoma. - Review of Systems Constitutional: No Fever All Other Systems: Unable due to dementia Objective Exam General Appearance: mild distress, other (somnolent) Neurologic Exam: disoriented Skin Exam: normal color, warm, dry, No rash Eye Exam: other (R eye laterally purple discoloration and linear glued laceration with scabbing) Respiratory Exam: lungs clear, diminished breath sounds, No crackles/rales, No rhonchi, No wheezing Cardiovascular Exam: regular rate/rhythm, normal heart sounds, murmur (III/ sys murmur) Gastrointestinal/Abdomen Exam: soft, normal bowel sounds, No tenderness, No distention Extremity Exam: other (no dependent edema or ecchymoses in hips bilat), No pedal edema, No swelling OBJECTIVE DATA Vital Signs: Vital Signs - 24 hr Temp Pulse Resp BP Pulse Ox 07/14/17 09:55 94 H 07/14/17 07:42 98.0 F 94 H 17 147/79 97 07/14/17 07:13 96 07/14/17 04:00 97.9 F 96 H 15 145/75 95 07/14/17 03:45 105 H 20 98 07/14/17 00:00 97.9 F 87 20 138/84 93 L 07/13/17 20:00 97.9 F 90 19 157/81 91 L 07/13/17 14:35 97.8 F 81 20 140/72 93 L 07/13/17 14:09 97.8 F 81 20 140/72 93 L 07/13/17 13:41 97 07/13/17 12:45 87 16 200/93 96 07/13/17 11:35 85 18 208/111 97 Oxygen-Last 24 hours O2 Percentage 2 Liters = 28% Pain Assessment - Last Documented Pain Intensity 6 Pain Scale Used FLACC Intake and Output: Intake & Output 07/11/17 07/12/17 07/13/17 07/14/17 11:59 11:59 11:59 11:59 Intake Total 10 Output Total 1015 Balance -1005 Weight 42.4 kg Lab Results: Lab Results-Last 24 Hours 07/13/17 07/13/17 07/13/17 Range/Units 17:47 17:54 17:54 WBC 14.2 H (4.0-10.5) K/mm3 RBC 4.09 L (4.1-5.4) M/mm3 Hgb 12.0 (12.0-16.0) gm/dl Hct 37.0 (35-47) % MCV 90.5 (78-100) fl MCH 29.3 (26-32) pg MCHC 32.4 (32-36) g/dl RDW 17.7 H (11.5-14.0) % Plt Count 262 (150-450) K/mm3 MPV 9.5 (6-9.5) fl Gran % 84.5 H (36.0-66.0) % Eos # (Auto) 0.03 (0-0.5) Absolute Lymphs (auto) 1.11 (1.0-4.6) Absolute Monos (auto) 1.06 (0.0-1.3) Lymphocytes % 7.8 L (24.0-44.0) % Monocytes % 7.4 (0.0-12.0) % Eosinophils % 0.2 (0.00-5.0) % Basophils % 0.1 (0.0-0.4) % Absolute Granulocytes 12.03 H (1.4-6.9) Basophils # 0.01 (0-0.4) PT (9.95-12.35) SECONDS INR (0.8-3.0) Sodium 140 (137-145) mmol/L Potassium 3.9 (3.5-5.1) mmol/L Chloride 111 H (98-107) mmol/L Carbon Dioxide 18 L (22-30) mmol/L Anion Gap 14.5 (5-15) MEQ/L BUN 16 (7-17) mg/dL Creatinine 0.70 (0.52-1.04) mg/dL Estimated GFR > 60.0 ML/MIN Glucose 126 H (74-106) mg/dL Calcium 8.8 (8.4-10.2) mg/dL Total Bilirubin 0.60 (0.2-1.3) mg/dL AST 27 (14-36) U/L ALT 24 (0-35) U/L Alkaline Phosphatase 67 (38-126) U/L Serum Total Protein 8.1 (6.3-8.2) g/dL Albumin 4.1 (3.5-5.0) g/dL Prealbumin 24.29 (17.6-36.0) mg/dL Ur Collection Type VOID Urine Color LT.YELLOW (YELLOW) Urine Appearance CLEAR (CLEAR) Urine pH 7.0 (5-6) Ur Specific [place] 1.005 (1.005-1.025) Urine Protein NEGATIVE (Negative) Urine Ketones NEGATIVE (NEGATIVE) Urine Blood TRACE NON-HEM (0-5) Mickey/ul Urine Nitrite NEGATIVE (NEGATIVE) Urine Bilirubin NEGATIVE (NEGATIVE) Urine Urobilinogen NORMAL (0-1) mg/dL Ur Leukocyte Esterase NEGATIVE (NEGATIVE) Urine Microscopic RBC 0-2 (0-2) /HPF Urine Glucose NEGATIVE (NEGATIVE) mg/dL Digoxin (0.8-1.9) ng/mL Specimen Received 07/13/17 1745 07/13/17 07/13/17 Range/Units 17:54 17:54 WBC (4.0-10.5) K/mm3 RBC (4.1-5.4) M/mm3 Hgb (12.0-16.0) gm/dl Hct (35-47) % MCV (78-100) fl MCH (26-32) pg MCHC (32-36) g/dl RDW (11.5-14.0) % Plt Count (150-450) K/mm3 MPV (6-9.5) fl Gran % (36.0-66.0) % Eos # (Auto) (0-0.5) Absolute Lymphs (auto) (1.0-4.6) Absolute Monos (auto) (0.0-1.3) Lymphocytes % (24.0-44.0) % Monocytes % (0.0-12.0) % Eosinophils % (0.00-5.0) % Basophils % (0.0-0.4) % Absolute Granulocytes (1.4-6.9) Basophils # (0-0.4) PT 24.7 H (9.95-12.35) SECONDS INR 2.11 (0.8-3.0) Sodium (137-145) mmol/L Potassium (3.5-5.1) mmol/L Chloride (98-107) mmol/L Carbon Dioxide (22-30) mmol/L Anion Gap (5-15) MEQ/L BUN (7-17) mg/dL Creatinine (0.52-1.04) mg/dL Estimated GFR ML/MIN Glucose (74-106) mg/dL Calcium (8.4-10.2) mg/dL Total Bilirubin (0.2-1.3) mg/dL AST (14-36) U/L ALT (0-35) U/L Alkaline Phosphatase (38-126) U/L Serum Total Protein (6.3-8.2) g/dL Albumin (3.5-5.0) g/dL Prealbumin (17.6-36.0) mg/dL Ur Collection Type Urine Color (YELLOW) Urine Appearance (CLEAR) Urine pH (5-6) Ur Specific [place] (1.005-1.025) Urine Protein (Negative) Urine Ketones (NEGATIVE) Urine Blood (0-5) Mickey/ul Urine Nitrite (NEGATIVE) Urine Bilirubin (NEGATIVE) Urine Urobilinogen (0-1) mg/dL Ur Leukocyte Esterase (NEGATIVE) Urine Microscopic RBC (0-2) /HPF Urine Glucose (NEGATIVE) mg/dL Digoxin 0.6 L (0.8-1.9) ng/mL Specimen Received Radiology Exams: Radiology Procedures Category Date Time Status HEAD WITHOUT CONTRAST [CT] Urgent Exams 07/14/17 09:44 Completed Multi-Disciplinary Progress Notes: Multi-Disciplinary Progress Notes 07/14/17 02:27 Respiratory Note by Satish Lau NURSING CALLED AND STATED THAT PT HAD SATS OF 89% ON RA AND THEY PLACED PT ON 2LPM AND SATS CAME UP TO 94%. I PLACED AN ORDER TO CHART ON. Initialized on 07/14/17 02:27 - END OF NOTE Assessment/Plan (1) Subdural hematoma Current Visit: Yes Status: Acute Assessment & Plan: Pt's INR was 2.11 yesterday - checking stat, if still elevated will give 5mg Vit K SQ. There is no/minimal mass effect currently. I discussed with son and [id number] (who is a nurse) - they do not want patient transferred for surgery if the hematoma extends, but they do agree with Vit K treatment. Plan to recheck CT scan tomorrow unless significant change in status. Code(s): S06.5X9A - TRAUM SUBDR HEM W LOC OF UNSP DURATION, INIT (2) Altered mental status Current Visit: Yes Status: Acute Qualifiers: Altered mental status type: somnolence Qualified Code(s): R40.0 - Somnolence Assessment & Plan: could be related to hematoma OR dehydration Code(s): R41.82 - ALTERED MENTAL STATUS, UNSPECIFIED (3) Pelvis fracture Current Visit: Yes Status: Acute Onset Date: ~07/13/17 Qualifiers: Encounter type: initial encounter Pelvic bone location: pubis Sublocation of pubis: unspecified portion of pubis Fracture type: closed Laterality: right Qualified Code(s): S32.501A - Unspecified fracture of right pubis, initial encounter for closed fracture Code(s): S32.9XXA - FRACTURE OF UNSP PARTS OF LUMBOSACRAL SPINE AND PELVIS, INIT (4) Fall Current Visit: Yes Status: Acute Onset Date: ~07/13/17 Qualifiers: Encounter type: initial encounter Qualified Code(s): W19.XXXA - Unspecified fall, initial encounter Code(s): W19.XXXA - UNSPECIFIED FALL, INITIAL ENCOUNTER (5) Arrhythmia Current Visit: Yes Status: Acute Onset Date: ~07/13/17 Qualifiers: Arrhythmia type: atrial fibrillation Atrial fibrillation type: chronic Qualified Code(s): I48.2 - Chronic atrial fibrillation Code(s): I49.9 - CARDIAC ARRHYTHMIA, UNSPECIFIED (6) Dementia Current Visit: Yes Status: Chronic Onset Date: ~07/13/17 Assessment & Plan: She was pleasantly disoriented but walking, eating, and talking at baseline. However she had an episode in February 2017 when she was very ill and the family thought she would pass away - however she didn't but now is much more disoriented. Code(s): F03.90 - UNSPECIFIED DEMENTIA WITHOUT BEHAVIORAL DISTURBANCE (7) Anticoagulated on Coumadin Current Visit: Yes Status: Chronic Onset Date: ~07/13/17 Code(s): Z51.81 - ENCOUNTER FOR THERAPEUTIC DRUG LEVEL MONITORING; Z79.01 - PENITENTIARY (CURRENT) USE OF ANTICOAGULANTS (8) Skin tear Current Visit: Yes Status: Acute Onset Date: ~07/13/17 Code(s): [id number] -
[2017-07-14 11:53] LABS: INR 1.8 (0.8-3.0)
[2017-07-14] MEDS ORDERED: Vitamin K 10 MG/ML SQ ONE (12:59)
[2017-07-14] MEDS ORDERED: Coumadin 3 MG PO SCH (18:00)
[2017-07-14] MEDS: Xalatan OP SCH (21:52)
[2017-07-15] MEDS: MORPHINE SULFATE 4 MG INJ IV PRN ×5 (01:39→22:24)
[2017-07-15 06:29] LABS: ALBUMIN 3.1 g/dL (3.5-5.0); ALKALINE PHOSPHATASE 47 U/L (38-126); ANION GAP 8.8 MEQ/L (5-15); BLOOD UREA NITROGEN 12 mg/dL (7-17); CHLORIDE 114 mmol/L (98-107); Calcium 8.3 mg/dL (8.4-10.2); Carbon Dioxide 19 mmol/L (22-30); Creatinine 1 0.63 mg/dL (0.52-1.04); Glucose 102 mg/dL (74-106); Potassium 3.6 mmol/L (3.5-5.1); SGOT/AST 14 U/L (14-36); SGPT/ALT 12 U/L (0-35); SODIUM 138 mmol/L (137-145); Total Protein 6.4 g/dL (6.3-8.2)
[2017-07-15] MEDS: Sodium Chloride 0.9% 1000 ML 1,000 ML IV SCH ×2 (06:33→16:33)
[2017-07-15 08:55] LABS: BASOPHIL % 0.3 % (0.0-0.4); Basophil (Absolute #) 0.03 (0-0.4); Eosinophil % 2.2 % (0.00-5.0); Eosinophil (Absolute #) 0.23 (0-0.5); Granulocyte Absolute (ANC) 7.21 (1.4-6.9); Granulocytes % 70.5 % (36.0-66.0); Hematocrit 32.7 % (35-47); Hemoglobin 10.4 gm/dl (12.0-16.0); Lymphocyte (Absolute #) 1.42 (1.0-4.6); Lymphocytes % 13.9 % (24.0-44.0); Mean Cell Volume 92.6 fl (78-100); Mean Corpuscular Hgb Concent. 31.8 g/dl (32-36); Mean Platelet Volume 10.3 fl (6-9.5); Monocyte (Absolute #) 1.34 (0.0-1.3); Monocytes % 13.1 % (0.0-12.0); Platelet Count 214 K/mm3 (150-450); Red Blood Count 3.53 M/mm3 (4.1-5.4); Red Cell Distribution Width 17.7 % (11.5-14.0); White Blood Count 10.2 K/mm3 (4.0-10.5)
[2017-07-15 08:57] LABS: INR 1.36 (0.8-3.0)
[2017-07-15 09:04] LABS: Mean Corpuscular Hemoglobin 29.4 pg (26-32)
[2017-07-15] MEDS: Lanoxin 0.125MG TABLET PO SCH ×2 (10:28→16:42)
[2017-07-15] MEDS: ACETAZOLAMIDE 250 MG TABLET PO SCH ×2 (10:28→21:31)
[2017-07-15] MEDS: Klor Con 10 MEQ PO SCH ×3 (10:29→21:31)
[2017-07-15] MEDS: Toprol-Xl 25MG Tablets PO SCH ×2 (10:29→16:44)
--- NOTE | 2017-07-15 11:01 | PCM.NOTE ---
Date and Time: 07/15/17 1056 Subjective Assessment: Last night her morphine was held and she did wake up quite a bit - ate mashed potatoes. Through the night she was more awake than previously and pulled at her IVs. This morning she wakes to voice. Speaks to me although she is disoriented ( knows her name is Sunshine, but can't tell me her last name - apparently she does go by Sunshine per staff). She is not oriented to place or time (President is "Sunshine"). She denies pain currently but states "I imagine I did (have pain)." Denies being hungry currently; did not eat breakfast. Seems to be in pain when she is moved. - Review of Systems Constitutional: No Fever Musculoskeletal: Injury Objective Exam General Appearance: no apparent distress, alert, other (R eye with purple discoloration laterally and linear healing laceration.) Neurologic Exam: cooperative, disoriented, other (can complete a sentence and hold a conversation, although disoriented) Skin Exam: warm, dry, No rash Respiratory Exam: normal breath sounds, lungs clear, No crackles/rales, No rhonchi, No wheezing Cardiovascular Exam: regular rate/rhythm, normal heart sounds, murmur (II/ sys murmur) Extremity Exam: No pedal edema, No swelling OBJECTIVE DATA Vital Signs: Vital Signs - 24 hr Temp Pulse Resp BP Pulse Ox 07/15/17 08:45 96 07/15/17 08:02 97.1 F 93 H 16 139/62 93 L 07/15/17 05:00 97.1 F 93 H 16 139/62 93 L 07/15/17 01:00 99.4 F 107 H 20 125/65 96 07/14/17 20:05 100 H 20 98 07/14/17 19:38 98.9 F 103 H 21 144/65 99 07/14/17 16:00 98.6 F 93 H 17 136/58 98 07/14/17 12:00 98.5 F 108 H 16 136/82 95 Oxygen-Last 24 hours O2 Percentage 2 Liters = 28% O2 Percentage 2 Liters = 28% O2 Percentage 2 Liters = 28% Pain Assessment - Last Documented Pain Intensity 0 [facility] Intake and Output: Intake & Output 07/12/17 07/13/17 07/14/1703/18 11:59 11:59 11:59 11:59 Intake Total 10 1950 Output Total 1015 850 Balance -1005 1100 Weight 42.4 kg Lab Results: Lab Results-Last 24 Hours 07/14/17 07/15/17 07/15/17 Range/Units 11:32 05:00 05:10 WBC 10.2 (4.0-10.5) K/mm3 RBC 3.53 L (4.1-5.4) M/mm3 Hgb 10.4 L (12.0-16.0) gm/dl Hct 32.7 L (35-47) % MCV 92.6 (78-100) fl MCH 29.4 (26-32) pg MCHC 31.8 L (32-36) g/dl RDW 17.7 H (11.5-14.0) % Plt Count 214 (150-450) K/mm3 MPV 10.3 H (6-9.5) fl Gran % 70.5 H (36.0-66.0) % Eos # (Auto) 0.23 (0-0.5) Absolute Lymphs (auto) 1.42 (1.0-4.6) Absolute Monos (auto) 1.34 H (0.0-1.3) Lymphocytes % 13.9 L (24.0-44.0) % Monocytes % 13.1 H (0.0-12.0) % Eosinophils % 2.2 (0.00-5.0) % Basophils % 0.3 (0.0-0.4) % Absolute Granulocytes 7.21 H (1.4-6.9) Basophils # 0.03 (0-0.4) PT 21.0 H 15.9 H (9.95-12.35) SECONDS INR 1.80 1.36 (0.8-3.0) Sodium (137-145) mmol/L Potassium (3.5-5.1) mmol/L Chloride (98-107) mmol/L Carbon Dioxide (22-30) mmol/L Anion Gap (5-15) MEQ/L BUN (7-17) mg/dL Creatinine (0.52-1.04) mg/dL Estimated GFR ML/MIN Glucose (74-106) mg/dL Calcium (8.4-10.2) mg/dL Total Bilirubin (0.2-1.3) mg/dL AST (14-36) U/L ALT (0-35) U/L Alkaline Phosphatase (38-126) U/L Serum Total Protein (6.3-8.2) g/dL Albumin (3.5-5.0) g/dL 07/15/17 Range/Units 05:10 WBC (4.0-10.5) K/mm3 RBC (4.1-5.4) M/mm3 Hgb (12.0-16.0) gm/dl Hct (35-47) % MCV (78-100) fl MCH (26-32) pg MCHC (32-36) g/dl RDW (11.5-14.0) % Plt Count (150-450) K/mm3 MPV (6-9.5) fl Gran % (36.0-66.0) % Eos # (Auto) (0-0.5) Absolute Lymphs (auto) (1.0-4.6) Absolute Monos (auto) (0.0-1.3) Lymphocytes % (24.0-44.0) % Monocytes % (0.0-12.0) % Eosinophils % (0.00-5.0) % Basophils % (0.0-0.4) % Absolute Granulocytes (1.4-6.9) Basophils # (0-0.4) PT (9.95-12.35) SECONDS INR (0.8-3.0) Sodium 138 (137-145) mmol/L Potassium 3.6 (3.5-5.1) mmol/L Chloride 114 H (98-107) mmol/L Carbon Dioxide 19 L (22-30) mmol/L Anion Gap 8.8 (5-15) MEQ/L BUN 12 (7-17) mg/dL Creatinine 0.63 (0.52-1.04) mg/dL Estimated GFR > 60.0 ML/MIN Glucose 102 (74-106) mg/dL Calcium 8.3 L (8.4-10.2) mg/dL Total Bilirubin 1.20 (0.2-1.3) mg/dL AST 14 (14-36) U/L ALT 12 (0-35) U/L Alkaline Phosphatase 47 (38-126) U/L Serum Total Protein 6.4 (6.3-8.2) g/dL Albumin 3.1 L (3.5-5.0) g/dL Radiology Exams: Radiology Procedures Category Date Time Status HEAD WITHOUT CONTRAST [CT] Urgent Exams 07/14/17 09:44 Completed Assessment/Plan (1) Subdural hematoma Current Visit: Yes Status: Acute Assessment & Plan: Clinically she is doing much better. Did receive Vit K 5mg SQ x 1 yesterday when the new subdural was found. I tried to call her family but the line was busy; would instruct nursing to let them know with clinical improvement would hold off on any further imaging. Code(s): S06.5X9A - TRAUM SUBDR HEM W LOC OF UNSP DURATION, INIT (2) Altered mental status Current Visit: Yes Status: Acute Qualifiers: Altered mental status type: somnolence Qualified Code(s): R40.0 - Somnolence Assessment & Plan: improved. Get pt up out of bed today (to chair) - if continues to be improved, likely back to [facility] tomorrow. Code(s): R41.82 - ALTERED MENTAL STATUS, UNSPECIFIED (3) Pelvis fracture Current Visit: Yes Status: Acute Onset Date: ~07/13/17 Qualifiers: Encounter type: initial encounter Pelvic bone location: pubis Sublocation of pubis: unspecified portion of pubis Fracture type: closed Laterality: right Qualified Code(s): S32.501A - Unspecified fracture of right pubis, initial encounter for closed fracture Assessment & Plan: conservative mgmt. Code(s): S32.9XXA - FRACTURE OF UNSP PARTS OF LUMBOSACRAL SPINE AND PELVIS, INIT (4) Fall Current Visit: Yes Status: Acute Onset Date: ~07/13/17 Qualifiers: Encounter type: initial encounter Qualified Code(s): W19.XXXA - Unspecified fall, initial encounter Code(s): W19.XXXA - UNSPECIFIED FALL, INITIAL ENCOUNTER (5) Arrhythmia Current Visit: Yes Status: Acute Onset Date: ~07/13/17 Qualifiers: Arrhythmia type: atrial fibrillation Atrial fibrillation type: chronic Qualified Code(s): I48.2 - Chronic atrial fibrillation Code(s): I49.9 - CARDIAC ARRHYTHMIA, UNSPECIFIED (6) Dementia Current Visit: Yes Status: Chronic Onset Date: ~07/13/17 Code(s): F03.90 - UNSPECIFIED DEMENTIA WITHOUT BEHAVIORAL DISTURBANCE (7) Anticoagulated on Coumadin Current Visit: Yes Status: Chronic Onset Date: ~07/13/17 Assessment & Plan: holding coumadin. Code(s): Z51.81 - ENCOUNTER FOR THERAPEUTIC DRUG LEVEL MONITORING; Z79.01 - [employer] (CURRENT) USE OF ANTICOAGULANTS (8) Skin tear Current Visit: Yes Status: Acute Onset Date: ~07/13/17 Code(s): [id number] -
[2017-07-15] MEDS: Xalatan OP SCH (21:36)
[2017-07-16] MEDS ORDERED: MORPHINE SULFATE 2 MG INJ IV PRN (00:08)
[2017-07-16] MEDS: Sodium Chloride 0.9% 1000 ML 1,000 ML IV SCH (04:42)
[2017-07-16 05:23] LABS: Hematocrit 33.2 % (35-47); Hemoglobin 10.7 gm/dl (12.0-16.0); Mean Cell Volume 91.7 fl (78-100); Mean Corpuscular Hgb Concent. 32.2 g/dl (32-36); Mean Platelet Volume 10.1 fl (6-9.5); Platelet Count 218 K/mm3 (150-450); Red Blood Count 3.62 M/mm3 (4.1-5.4); White Blood Count 10.8 K/mm3 (4.0-10.5)
[2017-07-16 05:42] LABS: Mean Corpuscular Hemoglobin 29.5 pg (26-32)
[2017-07-16 05:43] LABS: INR 1.23 (0.8-3.0)
[2017-07-16 05:48] LABS: ANION GAP 12.2 MEQ/L (5-15); BLOOD UREA NITROGEN 9 mg/dL (7-17); CHLORIDE 111 mmol/L (98-107); Calcium 8.6 mg/dL (8.4-10.2); Carbon Dioxide 20 mmol/L (22-30); Creatinine 1 0.58 mg/dL (0.52-1.04); Glucose 110 mg/dL (74-106); Potassium 3.7 mmol/L (3.5-5.1); SODIUM 139 mmol/L (137-145)
[2017-07-16 07:08] VITALS: BP 135/70; O2SAT 94
[2017-07-16] MEDS ORDERED: MORPHINE SULFATE 4 MG INJ IV PRN (07:08)
--- NOTE | 2017-07-16 08:28 | PCM.DS ---
Discharge Summary Date of Admission: 07/14/17 11:26 Admitting Physician: TAVO HARRIS Primary Care Provider: TAVO HARRIS Allergies Allergies No Known Drug Allergies Allergy (Verified 07/13/17 10:30) Hospital Summary - Hospital Course Hospital Course: Pt is 86 yo female pt of Dr. Harris who came in after a fall with decreased level of consciousness. She had extensive bruising and a pelvic fracture and needed pain control. She had CT head that had a question of a small area of bleeding - on repeat the next morning she had a subdural hematoma, 3-4mm. Coumadin was discontinued and vitamin K was given x 1. Her mental status improved over the next few days with IV fluids and a decrease in pain medicine ( morphine 2mg IV to 1mg IV). She refused to take po medicine off and on during her time here. Last night she was in increased pain and had to receive 2mg IV morphine again. She slept well after that. This morning she is only oriented to person (first name and maiden name) only. She is talking and laughing with me and the nurse. - Vitals & Intake/Output Vital Signs: Vital Signs Temperature 98.4 F 07/16/17 07:00 Pulse Rate 93 H 07/16/17 07:00 Respiratory Rate 16 07/16/17 07:00 Blood Pressure 135/70 07/16/17 07:00 O2 Sat by Pulse Oximetry 94 L 07/16/17 07:00 Oxygen-Last Documented O2 Percentage 2 Liters = 28% Intake & Output: Intake & Output 07/13/17 07/14/17 07/15/17 07/16/17 11:59 11:59 11:59 11:59 Intake Total 1950 2210 Output Total 850 1425 Balance 1100 785 - Lab Result Diagrams: 07/16/17 05:05 07/16/17 05:05 Lab Results-Last 24 Hrs: Lab Results-Last 24 Hours 07/15/17 07/15/17 07/16/17 Range/Units 05:00 05:10 05:05 WBC 10.2 10.8 H (4.0-10.5) K/mm3 RBC 3.53 L 3.62 L (4.1-5.4) M/mm3 Hgb 10.4 L 10.7 L (12.0-16.0) gm/dl Hct 32.7 L 33.2 L (35-47) % MCV 92.6 91.7 (78-100) fl MCH 29.4 29.5 (26-32) pg MCHC 31.8 L 32.2 (32-36) g/dl RDW 17.7 H 17.0 H (11.5-14.0) % Plt Count 214 218 (150-450) K/mm3 MPV 10.3 H 10.1 H (6-9.5) fl Gran % 70.5 H (36.0-66.0) % Eos # (Auto) 0.23 (0-0.5) Absolute Lymphs (auto) 1.42 (1.0-4.6) Absolute Monos (auto) 1.34 H (0.0-1.3) Lymphocytes % 13.9 L (24.0-44.0) % Monocytes % 13.1 H (0.0-12.0) % Eosinophils % 2.2 (0.00-5.0) % Basophils % 0.3 (0.0-0.4) % Absolute Granulocytes 7.21 H (1.4-6.9) Basophils # 0.03 (0-0.4) PT 15.9 H (9.95-12.35) SECONDS INR 1.36 (0.8-3.0) Sodium (137-145) mmol/L Potassium (3.5-5.1) mmol/L Chloride (98-107) mmol/L Carbon Dioxide (22-30) mmol/L Anion Gap (5-15) MEQ/L BUN (7-17) mg/dL Creatinine (0.52-1.04) mg/dL Estimated GFR ML/MIN Glucose (74-106) mg/dL Calcium (8.4-10.2) mg/dL 07/16/17 07/16/17 Range/Units 05:05 05:05 WBC (4.0-10.5) K/mm3 RBC (4.1-5.4) M/mm3 Hgb (12.0-16.0) gm/dl Hct (35-47) % MCV (78-100) fl MCH (26-32) pg MCHC (32-36) g/dl RDW (11.5-14.0) % Plt Count (150-450) K/mm3 MPV (6-9.5) fl Gran % (36.0-66.0) % Eos # (Auto) (0-0.5) Absolute Lymphs (auto) (1.0-4.6) Absolute Monos (auto) (0.0-1.3) Lymphocytes % (24.0-44.0) % Monocytes % (0.0-12.0) % Eosinophils % (0.00-5.0) % Basophils % (0.0-0.4) % Absolute Granulocytes (1.4-6.9) Basophils # (0-0.4) PT 14.3 H (9.95-12.35) SECONDS INR 1.23 (0.8-3.0) Sodium 139 (137-145) mmol/L Potassium 3.7 (3.5-5.1) mmol/L Chloride 111 H (98-107) mmol/L Carbon Dioxide 20 L (22-30) mmol/L Anion Gap 12.2 (5-15) MEQ/L BUN 9 (7-17) mg/dL Creatinine 0.58 (0.52-1.04) mg/dL Estimated GFR > 60.0 ML/MIN Glucose 110 H (74-106) mg/dL Calcium 8.6 (8.4-10.2) mg/dL Discharge Exam General Appearance: no apparent distress, thin Neurologic Exam: alert, cooperative, disoriented Skin Exam: warm, dry, other (R eye with decreased purple discoloration laterally ), No rash Respiratory Exam: normal breath sounds, lungs clear Cardiovascular Exam: regular rate/rhythm, normal heart sounds, No murmur Extremity Exam: No pedal edema, No swelling Back Exam: normal inspection, No rash Final Diagnosis/Problem List - Final Discharge Diagnosis/Problem (1) Subdural hematoma Current Visit: Yes Status: Acute Assessment & Plan: Clinically she's doing well so no repeat CT scan is planned. Will restart the coumadin in a week. neuro checks at group home. I discussed with daughter-in -law, Serenity, who agrees with the plan. (2) Altered mental status Current Visit: Yes Status: Resolved (3) Pelvis fracture Current Visit: Yes Status: Acute Onset Date: ~07/13/17 Assessment & Plan: Conservative management. Everson 5/325 for pain prn, with SQ morphine available prn. (4) Fall Current Visit: Yes Status: Acute Onset Date: ~07/13/17 (5) Arrhythmia Current Visit: Yes Status: Acute Onset Date: ~07/13/17 Assessment & Plan: had not been taking po meds here, but I anticipate once in her usual surroundings she may take her digoxin. (6) Dementia Current Visit: Yes Status: Chronic Onset Date: ~07/13/17 (7) Anticoagulated on Coumadin Current Visit: Yes Status: Chronic Onset Date: ~07/13/17 Assessment & Plan: INR returning to normal currently. (8) Skin tear Current Visit: Yes Status: Acute Onset Date: ~07/13/17 - Discharge Disposition: CO TO [facility] Condition: Stable Prescriptions: New Morphine Sulfate/Pf [Morphine 1 mg/2 ml Syringe] 1 mg SQ BID PRN #4 syringe MDD 2 PRN Reason: Severe Pain Hydrocodone Bit/Acetaminophen [[place] 5-325 Tablet] 1 each PO Q4H PRN #40 tablet MDD 6 PRN Reason: Pain Continue Digoxin [Lanoxin] 0.5 tab PO DAILY Potassium Chloride [K-Tab ER] 10 meq PO TID Latanoprost [Xalatan] 1 drop OP HS Brimonidine Tartrate/Timolol [Combigan 0.2%-0.5% Eye Drops] 1 drop OP BID Brinzolamide [Azopt] 1 drop OP BID acetaZOLAMIDE [Acetazolamide 250 mg Tablet] 250 mg PO BID Acetaminophen [Acetaminophen 8 Hour] 650 mg PO Q4H PRN PRN Reason: Pain Metoprolol Succinate 25 mg PO DAILY Warfarin Sodium [Coumadin] 3 mg PO DAILY #30 tablet Additional Instructions: Watch for neurological changes q6h while awake - report any change in mental status to MD GASTELUM. Follow up with: TAVO HARRIS [Primary Care Provider] - 1 Week
[2017-07-16] MEDS: Lanoxin 0.125MG TABLET PO SCH (08:46)
[2017-07-16] MEDS: Toprol-Xl 25MG Tablets PO SCH (08:46)
[2017-07-16] MEDS: ACETAZOLAMIDE 250 MG TABLET PO SCH (08:46)
[2017-07-16] MEDS: Klor Con 10 MEQ PO SCH (08:46)
[2017-07-16 08:47] VITALS: PULSE 91
== END 2017-07-16 10:00 | DRG 965 ==
LOC: ED 10:21 → MED SURG 14:09 → OBSVTOIN 07-14 11:26
PROVIDERS: ADMIT Family Medicine; ATTEND Family Medicine
DX: S06.5X9A Traumatic subdural hemorrhage with loss of consciousness of unspecified duration, initial encounter (principal); S32.501A Unspecified fracture of right pubis, initial encounter for closed fracture; S32.9XXA Fracture of unspecified parts of lumbosacral spine and pelvis, initial encounter for closed fracture; R40.0 Somnolence; R41.82 Altered mental status, unspecified; W19.XXXA Unspecified fall, initial encounter; I48.2 Chronic atrial fibrillation; Z51.81 Encounter for therapeutic drug level monitoring; S51.011A Laceration without foreign body of right elbow, initial encounter; S01.111A Laceration without foreign body of right eyelid and periocular area, initial encounter; Z86.79 Personal history of other diseases of the circulatory system; I10 Essential (primary) hypertension; M19.90 Unspecified osteoarthritis, unspecified site; F03.90 Unspecified dementia, unspecified severity, without behavioral disturbance, psychotic disturbance, mood disturbance, and anxiety; E78.00 Pure hypercholesterolemia, unspecified; Z79.899 Other long term (current) drug therapy; Z79.01 Long term (current) use of anticoagulants
CPT/HCPCS: 36415; 70450; 72125; 73080; 73502; 80048; 80053; 80162; 81000; 84134; 85025; 85027; 85610; 87086; 93268; 94760; 96374; 96375; 99285; J2270; J2405; J3430; A9270-GY; G0378